=== PATIENT | male | born 1990 | race African-American/Black ===

== ENCOUNTER 2021-08-18 01:23 | Emergency (ER) | payer SELFPAY ==
[2021-08-18] MEDS ORDERED: Lidocaine 1% w/Epinephrine 1:100K 20 ML VIAL ONE (01:43)
[2021-08-18] MEDS ORDERED: Bupivacaine 0.5% 10 ML VIAL ONE (01:43)
== END 2021-08-18 02:00 | disposition home or self-care (01) ==
LOC: NAV ERS 01:23
DX: K08.89 Other specified disorders of teeth and supporting structures (principal)
CPT/HCPCS: 64400; J3490